=== PATIENT | male | born 1960 | race Caucasian/White ===

== ENCOUNTER → 2017-03-14 | Outpatient (CLI) | payer BC ==
--- NOTE | 2017-03-14 23:18 | MR ---
EXAMINATION TYPE: MR shoulder RT wo con DATE OF EXAM: 03/14/2017 COMPARISON: Outside right shoulder x-ray February 26, 2017. HISTORY: Right shoulder pain per order. Pain for 2 years with difficulty raising overhead per patient . TECHNIQUE: Multiplanar, multisequence imaging of the right shoulder is performed without contrast. FINDINGS: Rotator Cuff: There is full-thickness retracted tear of supraspinatus tendon tract at roughly 2.5 cm from humeral head attachment to level of the acromion seen best on paracoronal image 13. Infraspinatu s tendon is intact. Some increased signal is present without discrete tear. There is some focal teari ng of the superior fibers of the subscapularis tendon present. Rotator cuff muscle bulk is preserved. Acromioclavicular Joint: There is marked joint space loss with capsular hypertrophy and spurring at a cromioclavicular joint. Distal acromion morphology shows mild lateral spurring. Glenohumeral Joint: There is high riding humeral head present. There is large suprapatellar joint eff usion. Labrum: Degenerative tear superior labrum is felt present seen best on paracoronal image 11. Biceps Tendon: The long head of biceps is in normal location within bicipital groove. There is large surrounding fluid with tendon more anteriorly and extra-articular portion. Some intermediate signal a nd thickening is seen in the intra-articular portion best on axial image 13. Bone marrow signal: No focal abnormal marrow signal is appreciated. Other: No additional significant abnormality is appreciated. IMPRESSION: 1. Full-thickness retracted tear of the supraspinatus tendon. Associated high riding humeral head is present. No significant rotator cuff muscular atrophy. 2. Partial tear superior fibers of the subscapularis tendon. 3. Severe tendinosis of the intra-articular portion of long head of biceps tendon. 4. Large glenohumeral joint effusion. 5. Moderate to severe degenerative change acromioclavicular joint.
== END ==
LOC: RADMRIMAIN 19:24
PROVIDERS: ATTEND Orthopaedic Surgery
DX: M75.101 Unspecified rotator cuff tear or rupture of right shoulder, not specified as traumatic (principal); M75.91 Shoulder lesion, unspecified, right shoulder; M25.411 Effusion, right shoulder

== ENCOUNTER 2017-07-18 08:56 | Day surgery (SDC) | payer BC ==
[2017-07-10 23:33] VITALS: BMI 34.2
--- NOTE | 2017-07-17 14:57 | HP ---
HISTORY AND PHYSICAL DATE OF SERVICE: 07/18/2017 Erick Leyva is a 57-year-old patient seen with progressive right shoulder pain. We discussed treatment options. He elected to proceed with arthroscopy. Consent was obtained. PAST MEDICAL HISTORY: Hyperlipidemia, hypertension. PAST SURGICAL HISTORY: Knee arthroscopy. DAILY MEDICATIONS: 1. Simvastatin. 2. Finasteride. ALLERGIES: None reported. SOCIAL HISTORY: Patient denies tobacco use. PHYSICAL EXAMINATION: Right shoulder flexion is 150 degrees, abduction is 130 degrees, external rotation is 50 degrees with pain and weakness. There is tenderness along the anterior lateral acromion and rotator cuff insertion. Impingement positive at 90 degrees. Drop-arm sign is positive. Distal neurovascular exam is intact. Right shoulder radiographs revealed a type 2 anterior acromion and cystic changes of the greater tuberosity. Right shoulder MRI revealed a retracted rotator cuff tendon tear. IMPRESSION: Right shoulder impingement with rotator cuff tear. PLAN: Right shoulder arthroscopy with subacromial decompression, probable arthroscopic rotator cuff repair, possible Keely procedure and debridement. MMODL / IJN: [id number] /
[~2017-07-18 08:56] MED LIST: DEXAMETHASONE SOD PHOSPHATE 10 MG/ML 1 ML VIAL IV ONE; LACTATED RINGERS 1,000 ML IV SCH; LIDOCAINE 1% 20 ML VIAL (10MG/ML) FOR IV START INTRADERMA PRN; MIDAZOLAM 2 MG/2 ML VIAL IV PRN; ONDANSETRON 4 MG/2 ML VIAL IVP ONE; SCOPOLAMINE 1.5MG/72HR PATCH TRANSDERM ONE; ceFAZolin IN SWFI 2 GM/20 ML SYRINGE IVP ONE
[2017-07-18] MEDS ORDERED: MIDAZOLAM 2 MG/2 ML VIAL ONE (09:58)
[2017-07-18] MEDS ORDERED: fentaNYL (PF) 50 MCG/ML 2 ML AMP ONE (09:58)
[2017-07-18] MEDS ORDERED: LIDOCAINE 1% INJ 10MG/ML (20 ML MDV) ONE (09:58)
[2017-07-18] MEDS ORDERED: PROPOFOL 10 MG/ML 20 ML VIAL IV ONE (09:58)
[2017-07-18] MEDS ORDERED: PHENYLEPHRINE-0.9% NACL SYG 1 MG/10 ML SYRINGE ONE (09:58)
[2017-07-18] MEDS ORDERED: SUCCINYLCHOLINE CHLORIDE VIAL 200 MG/10 ML VIAL IV ONE (09:58)
[2017-07-18] MEDS ORDERED: LACTATED RINGERS 1,000 ML IV ONE (12:13)
--- NOTE | 2017-07-18 12:27 | P.OP ---
Date of Procedure: 07/18/17 Preoperative Diagnosis: Right shoulder impingement with rotator cuff tear Postoperative Diagnosis: 1. Right shoulder rotator cuff tear 2. Right shoulder impingement 3. Right shoulder acromioclavicular joint osteoarthritis 4. Right shoulder partial long head biceps tendon tear 5. Right shoulder superficial labral tear 6. 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 Right shoulder arthroscopic rotator cuff repair 2. Right shoulder arthroscopic subacromial decompression 3. Right shoulder arthroscopic Keely procedure 4. Right shoulder arthroscopic biceps tenotomy 5. Right shoulder arthroscopic debridement labral tear 6. Right shoulder arthroscopic chondroplasty glenoid and humeral head Implants: 7-4.5 peek anchors Anesthesia: GETA, regional (Interscalene block) Surgeon: Dawood Knowles Quarrying Specialist #1: Rakesh Hernandez Estimated Blood Loss (ml): 15 Pathology: none sent Condition: stable Disposition: PACU Indications for Procedure: 57-year-old patient seen with progressive right shoulder pain. After treatment options were discussed, he elected to proceed with arthroscopy. Operative Findings: See description of procedure Description of Procedure: Patient underwent a shoulder block by department of anesthesia. The patient was then taken to the operative suite. The patient underwent a general anesthetic by the department of anesthesia. The patient was placed into a lateral position and secured. There was appropriate padding of the bony prominence. Right shoulder was then prepped and draped in normal sterile orthopedic fashion. We placed the extremity in 10 pounds of longitudinal traction. A posterior incision was now made for a posterior working portal site. The trocar and cannula were inserted into the glenohumeral joint. Arthroscopy was initiated. Spinal needle was now inserted anteriorly, to ascertain the anterior working portal site. An incision was now made in that area, a trocar was inserted followed by a probe. There was superficial tearing of the anterior labrum present. Grade 1/2 chondromalacia changes of the glenoid and grade 1 chondromalacia changes of the humeral head with some osteochondral tears. Partial tearing long head biceps tendon. An obvious large rotator cuff tear was visualized from glenohumeral side. I performed an arthroscopic biceps tenotomy. I debrided the superficial labral tears down to stable tissue. I performed a chondroplasty of the humeral head and glenoid fossa. The residual osteochondral surfaces were stable. The residual labrum was stable. Utilizing the posterior working portal site, the trocar and cannula were inserted into the subacromial space. Arthroscopy initiated. I made an incision 2 fingerbreadths lateral to the acromion. I introduced my trocar followed by my ArthroCare ablator. I now began ablating thick subacromial bursal tissue, which exposed the undersurface of the anterior acromion. This was diminished subacromial space. There was a very prominent anterior acromion. A motorized bur was introduced and a subacromial decompression was performed. I also excised some osteophytes off the inferior aspect of the distal clavicle. The AC joint was visualized and noted to be fairly arthritic. Our motorized bur was introduced in the anterior portal site and a Keely procedure was performed without difficulty, decompressing the AC joint nicely. I turned my attention to the rotator cuff. There was a large 3 cm plus tear distal supraspinatus with some retraction. I was able to barely pull it over the footprint. After some releasing was performed to have some more mobilization. I abraded the footprint with a motorized bur. 2 astronomy teacher portal sites are made off the lateral acromion, one anteriorly and one posteriorly. We now introduced 3 medial row anchors with 2 sutures each. All 12 limbs of suture were passed through good bites of rotator cuff tendon. We crisscrossed all her sutures point the tendon over the footprint and then introducing 3 lateral anchors. A compressive tendon along the footprint nicely except for a central area were we had a residual dogear. 3 suture loops were now introduced and an additional anchor was placed centrally to compress that dogear along the footprint very nicely. All residual suture limbs were clipped. We had a good stable repair.. Instruments now removed from the portal sites. All portal sites were approximated with nylon suture. Sterile dressings were applied followed by a shoulder immobilizer. Saad WALKER assisted with the procedure. The patient was awakened, transferred to a bed, and taken to recovery in stable condition.
[2017-07-18 12:33] VITALS: TEMP 97.4
[2017-07-18] MEDS: HYDROmorphone 0.5 MG/0.5 ML SYRINGE IVP PRN ×4 (12:52→13:24)
[2017-07-18 13:52] VITALS: RESP 18
[2017-07-18] MEDS ORDERED: HYDROcodone/APAP 10-325MG 1 EACH TAB PO ONE (14:30)
[2017-07-18 14:33] VITALS: PULSE 89
[2017-07-18 14:59] VITALS: BP 142/80
--- NOTE | 2017-07-19 08:34 | P.ONQ ---
Anesthesiology Proc Note - PNB - Peripheral Nerve Block Performed Right Interscalene Single Time Out Performed: Yes Procedure Start Time: :48 Procedure Stop Time: :54 Indication: Acute Post-Operative Pain, Requested by physician Sedation Type: Sedate with meaningful contact maintained Preparation: Sterile Prep Catheter: None Needle Size: 50mm (2") Needle Gauge: 21 Technique: Ultrasound Injectate: 0.5% Ropivacaine (see comment for volume) (ropi.5% 30cc) Blood Aspirated: No Pain Paresthesia on Injection Noted: No Resistance on Injection: Normal Events: Uneventful and Well Tolerated
== END 2017-07-18 15:29 | disposition home or self-care (01) ==
LOC: OR 08:56
PROVIDERS: ATTEND Orthopaedic Surgery
DX: M75.101 Unspecified rotator cuff tear or rupture of right shoulder, not specified as traumatic (principal); M19.011 Primary osteoarthritis, right shoulder; S46.111A Strain of muscle, fascia and tendon of long head of biceps, right arm, initial encounter; S43.491A Other sprain of right shoulder joint, initial encounter; M25.711 Osteophyte, right shoulder; X58.XXXA Exposure to other specified factors, initial encounter; M94.211 Chondromalacia, right shoulder; E78.5 Hyperlipidemia, unspecified; N40.0 Benign prostatic hyperplasia without lower urinary tract symptoms; I10 Essential (primary) hypertension; Z79.82 Long term (current) use of aspirin; Z79.1 Long term (current) use of non-steroidal anti-inflammatories (NSAID); Z79.891 Long term (current) use of opiate analgesic; Z79.899 Other long term (current) drug therapy
CPT/HCPCS: 64415; 29826; 29827; 29824; C1713; J2250; J0330; J1100; J0690; J2405; J2001; J3010; J2370; J2704; J1170

== ENCOUNTER 2018-01-03 08:18 | Day surgery (SDC) | payer BC ==
[2017-12-31 11:47] VITALS: BMI 34.8
[~2018-01-03 08:18] MED LIST changes: -DEXAMETHASONE SOD PHOSPHATE 10 MG/ML 1 ML VIAL IV ONE; -LIDOCAINE 1% 20 ML VIAL (10MG/ML) FOR IV START INTRADERMA PRN; -MIDAZOLAM 2 MG/2 ML VIAL IV PRN; -ONDANSETRON 4 MG/2 ML VIAL IVP ONE; -SCOPOLAMINE 1.5MG/72HR PATCH TRANSDERM ONE; -ceFAZolin IN SWFI 2 GM/20 ML SYRINGE IVP ONE
[2018-01-03 08:43] VITALS: TEMP 98.6
[2018-01-03] MEDS ORDERED: fentaNYL (PF) 50 MCG/ML 2 ML AMP ONE (08:52)
[2018-01-03] MEDS ORDERED: PROPOFOL 10 MG/ML 20 ML VIAL IV ONE (08:52)
--- NOTE | 2018-01-03 09:03 | P.GSHP ---
History of Present Illness H&P Date: 01/03/18 Chief Complaint: Colon cancer screening Patient here today for colonoscopy. His last colonoscopy was 20 years ago. At that time in his youth he apparently had a colonic perforation that was treated nonoperatively. No bowel complaints presently. Past Medical History Past Medical History: Hyperlipidemia, Hypertension, Osteoarthritis (OA) Additional Past Medical History / Comment(s): migraines, hx palpitations, hiatal hernia, occ blood in stool, hemorrhoid, History of Any Multi-Drug Resistant Organisms: None Reported Past Surgical History: Appendectomy, Hernia Repair, Orthopedic Surgery Additional Past Surgical History / Comment(s): arthroscopy left knee, rt shoulder rotator cuff, Past Anesthesia/Blood Transfusion Reactions: Motion Sickness Additional Past Anesthesia/Blood Transfusion Reaction / Comment(s): motion sickness when younger Smoking Status: Never smoker - Past Family History Father Family Medical History: Cancer Medications and Allergies Home Medications Medication Instructions Recorded Confirmed Type Aspirin 81 mg PO DAILY 07/10/17 01/03/18 History Diclofenac Potassium [Cataflam] 50 mg PO TID 07/10/17 01/03/18 History Finasteride [Proscar] 5 mg PO HS 07/10/17 01/03/18 History HYDROcodone/APAP 7.5-325MG [[place] 1 tab PO BID PRN 07/10/17 01/03/18 History 7.5-325] Metoprolol Succinate (ER) [Toprol 50 mg PO HS 07/10/17 01/03/18 History Xl] Simvastatin [Zocor] 40 mg PO HS 07/10/17 01/03/18 History SUMAtriptan SUCCINATE [Imitrex] 100 mg PO BID PRN 12/31/17 01/03/18 History Allergies Allergy/AdvReac Type Severity Reaction Status Date / Time No Known Allergies Allergy Verified 01/03/18 08:34 Surgical - Exam Vital Signs Temp Pulse Resp BP Pulse Ox 98.6 F 88 16 148/93 94 L 01/03/18 08:41 01/03/18 08:41 01/03/18 08:41 01/03/18 08:41 01/03/18 08:41 Physical exam: General: Well-developed, well-nourished HEENT: Normocephalic, sclerae nonicteric Abdomen: Nontender, nondistended Extremities: No edema Neuro: Alert and oriented Assessment and Plan (1) Colon cancer screening Narrative/Plan: Will proceed with colonoscopy at this time. Current Visit: Yes Status: Acute Code(s): Z12.11 - ENCOUNTER FOR SCREENING FOR MALIGNANT NEOPLASM OF COLON SNOMED Code(s): 322905676
--- NOTE | 2018-01-03 09:17 | P.PCN ---
Date of Procedure: 01/03/18 Procedure(s) Performed: PREOPERATIVE DIAGNOSIS: Colon cancer screening POSTOPERATIVE DIAGNOSIS: Diverticulosis PROCEDURE: Colonoscopy ANESTHESIA: MAC SURGEON: Jhonny Irene M.D. SPECIMENS: None ENDOSCOPIC PROCEDURE: The patient was placed on the endoscopy table in the left decubitus position. The Olympus colonoscope was inserted into the anus and passed under direct visualization to the base of the cecum. The appendiceal orifice was visualized. From that point the scope was slowly withdrawn inspecting all surfaces carefully. There were no neoplastic inflammatory or polypoid lesions throughout the cecum, ascending, transverse, descending, sigmoid and rectum. There was moderate diverticulosis noted throughout the sigmoid colon. Digital rectal examination was normal. The patient was taken to the recovery room in stable condition per anesthesia guidelines. RECOMMENDATIONS: Increase fiber. Follow-up colonoscopy 10 years.
[2018-01-03 09:39] VITALS: BP 135/84; PULSE 67; RESP 18
== END 2018-01-03 09:44 | disposition home or self-care (01) ==
LOC: ORWHC2ENDO 08:18
PROVIDERS: ATTEND Surgery
DX: Z12.11 Encounter for screening for malignant neoplasm of colon (principal); K57.30 Diverticulosis of large intestine without perforation or abscess without bleeding; K64.9 Unspecified hemorrhoids; E78.5 Hyperlipidemia, unspecified; I10 Essential (primary) hypertension; M19.90 Unspecified osteoarthritis, unspecified site; F41.9 Anxiety disorder, unspecified; G43.909 Migraine, unspecified, not intractable, without status migrainosus; Z79.82 Long term (current) use of aspirin; Z79.1 Long term (current) use of non-steroidal anti-inflammatories (NSAID); Z79.899 Other long term (current) drug therapy; Z87.19 Personal history of other diseases of the digestive system; Z80.9 Family history of malignant neoplasm, unspecified
CPT/HCPCS: J3010; J2704; G0121; 45378

== ENCOUNTER → 2018-04-17 | Outpatient (CLI) | payer BC ==
--- NOTE | 2018-04-17 23:10 | MR ---
EXAMINATION TYPE: MR shoulder LT wo con DATE OF EXAM: 04/17/2018 COMPARISON: Outside left shoulder x-ray March 25, 2018. HISTORY: Pain in left shoulder per order. Rotator cuff pain with difficulty raising overhead for 2 mo nths per patient. TECHNIQUE: Multiplanar, multisequence imaging of the left shoulder is performed without contrast. FINDINGS: Rotator Cuff: There appears to be complete retracted tear of the supraspinatus tendon retracted to th e lateral margin of the acromion paracoronal image 11. Infraspinatus tendon is intact. Subscapularis tendon is intact. Rotator cuff muscle bulk is preserved. Acromioclavicular Joint: There is moderate to advanced joint space loss and spurring with capsular hy pertrophy. Glenohumeral Joint: There is moderate size glenohumeral joint effusion. There is moderate joint space loss with mild spurring. Labrum: Degenerative increased signal superior labrum is felt present paracoronal image 12. Biceps Tendon: The long head of biceps is heart shifted location as axis intra-articular groove axial image 13. Some increased signal intracapsular horizontal portion is present towards labral anchor. S urrounding fluid signal within the tendon sheath is present. Bone marrow signal: Subchondral cystic change superolateral humeral head is present. Other: No additional significant abnormality is appreciated. IMPRESSION: 1. Full-thickness retracted tear of supraspinatus tendon. 2. Moderate to advanced before meals and glenohumeral joint arthropathy. 3. Tendinosis/partial tear of the intra-articular portion biceps tendon with parching and tenosynovit is noted.
== END | disposition home or self-care (01) ==
LOC: RADMRIMAIN 16:56
PROVIDERS: ATTEND Orthopaedic Surgery
DX: M75.122 Complete rotator cuff tear or rupture of left shoulder, not specified as traumatic (principal); M12.9 Arthropathy, unspecified; M65.812 Other synovitis and tenosynovitis, left shoulder

== ENCOUNTER → 2018-07-10 | Outpatient (CLI) | payer BC | LOC: LABPAT 13:36 | PROVIDERS: ATTEND Orthopaedic Surgery | DX: Z01.812 Encounter for preprocedural laboratory examination (principal) | CPT/HCPCS: 87070 ==

== ENCOUNTER 2018-07-21 10:42 | Day surgery (SDC) | payer BC ==
--- NOTE | 2018-07-20 15:13 | HP ---
HISTORY AND PHYSICAL HISTORY: Kelvin Leyva is a 58-year-old patient seen with symptomatic left knee osteoarthritis. Treatment options were discussed with him. He elected to proceed with left total knee arthroplasty. Consent regarding procedure was obtained. Medical clearance was provided by Dr. Moreau. PAST MEDICAL HISTORY: Hypertension, hyperlipidemia. PAST SURGICAL HISTORY: Left knee arthroscopy, right shoulder arthroscopy, appendectomy. MEDICATIONS: Simvastatin, sumatriptan, diclofenac. ALLERGIES: None. SOCIAL HISTORY: Patient denies tobacco use. PHYSICAL EXAMINATION: Evaluation of the left knee, range of motion is -2 to 125 degrees. Tenderness along the medial joint line. Crepitus medial patellofemoral compartments with range of motion. Pain with patellofemoral compression. Ligaments stable. Hip rotation without pain. Distal neurovascular exam is intact. RADIOGRAPHS: Revealed severe medial moderate patellofemoral compartment osteoarthritis. IMPRESSION: 1. Left knee osteoarthritis. 2. Hypertension. 3. Hyperlipidemia. PLAN: Left total knee arthroplasty. MMODL / IJN: [id number] /
[2018-07-21] MEDS: LIDOCAINE 1% 20 ML VIAL (10MG/ML) FOR IV START INTRADERMA PRN ×2 (10:20→11:20)
[2018-07-21] MEDS: ONDANSETRON 4 MG/2 ML VIAL IVP ONE ×2 (10:20→11:20)
[2018-07-21] MEDS: DEXAMETHASONE SOD PHOSPHATE 10 MG/ML 1 ML VIAL IV ONE ×2 (10:20→11:20)
[~2018-07-21 10:42] MED LIST changes: +ACETAMINOPHEN TAB 500 MG TAB PO ONE; +MELOXICAM 7.5 MG TAB PO ONE; +MIDAZOLAM 2 MG/2 ML VIAL IVP ONE; +SCOPOLAMINE 1.5MG/72HR PATCH TRANSDERM ONE; +TRANEXAMIC ACID 1,000 MG in SODIUM CHLORIDE 0.9% 50 ML IVPB ONE; +fentaNYL (PF) 50 MCG/ML 2 ML AMP IVP ONE
[2018-07-21] MEDS ORDERED: ROPIVACAINE 246.25 MG, EPINEPHrine 0.5 MG, KETOROLAC 30 MG, cloNIDine HCL/PF 80 MCG, WA... MISCELLANE ONE ×5 (11:24)
[2018-07-21] MEDS ORDERED: MIDAZOLAM 2 MG/2 ML VIAL IVP ONE (11:25)
[2018-07-21] MEDS ORDERED: fentaNYL (PF) 50 MCG/ML 2 ML AMP IVP ONE (11:25)
[2018-07-21] MEDS ORDERED: ePHEDrine SULFATE/0.9% NACL/PF 50 MG/5 ML SYRINGE IV ONE (11:53)
[2018-07-21] MEDS ORDERED: fentaNYL (PF) 50 MCG/ML 2 ML AMP ONE (11:53)
[2018-07-21] MEDS ORDERED: TRANEXAMIC ACID 1,000 MG/10 ML VIAL ONE (11:53)
[2018-07-21] MEDS ORDERED: SODIUM CHLORIDE 0.9% 100 ML BAG ONE (11:53)
[2018-07-21] MEDS ORDERED: MIDAZOLAM 2 MG/2 ML VIAL ONE (11:53)
[2018-07-21] MEDS ORDERED: PROPOFOL 10 MG/ML 20 ML VIAL IV ONE (11:53)
[2018-07-21] MEDS ORDERED: ROPIVACAINE 1,100 MG, SODIUM CHLORIDE 0.9% 500 ML 330 ML MISCELLANE PRN ×2 (11:54)
--- NOTE | 2018-07-21 11:56 | P.ONQ ---
Anesthesiology Proc Note - PNB - Peripheral Nerve Block Performed Left Adductor Canal Infusion Time Out Performed: Yes Procedure Start Time: 10:25 Indication: Acute Post-Operative Pain Specifically requested for management of pain by DrNick: Dawood Knowles Sedation Type: Sedate with meaningful contact maintained Preparation: Sterile Prep Position: Supine Catheter Depth at Skin (cm): 7 Catheter: Indwelling Needle Types: Other (see comment) (Pajunk) Needle Size: 100mm (4") Needle Gauge: 18 Technique: Ultrasound Injectate: 0.5% Ropivacaine (see comment for volume) (20cc) Blood Aspirated: No Pain Paresthesia on Injection Noted: No Resistance on Injection: Normal Events: Uneventful and Well Tolerated
[2018-07-21] MEDS ORDERED: LACTATED RINGERS 1,000 ML IV ONE ×3 (12:26→14:50)
[2018-07-21] MEDS ORDERED: ceFAZolin 3,000 MG in SODIUM CHLORIDE 0.9% IRRIGATIO 3,000 ML IRRIGATION ONE (12:37)
[2018-07-21] MEDS ORDERED: HYDROmorphone 1 MG/ML 1 ML SYRINGE IVP PRN (14:00)
[2018-07-21] MEDS ORDERED: hydrOXYzine PAMOATE 25 MG CAP PO PRN (14:00)
[2018-07-21] MEDS ORDERED: ONDANSETRON 4 MG/2 ML VIAL IVP PRN (14:00)
[2018-07-21] MEDS ORDERED: HYDROmorphone 0.5 MG/0.5 ML SYRINGE IVP PRN ×2 (14:00)
[2018-07-21] MEDS ORDERED: NALOXONE 0.4 MG/ML 1 ML VIAL IV PRN (14:00)
[2018-07-21] MEDS ORDERED: HYDROcodone/APAP 5-325MG 1 EACH TAB PO PRN (14:00)
--- NOTE | 2018-07-21 14:00 | P.OP ---
Date of Procedure: 07/21/18 Preoperative Diagnosis: Left knee osteoarthritis Postoperative Diagnosis: Left knee osteoarthritis Procedure(s) Performed: Left total knee arthroplasty Implants: 1. Depuy attune size 7 cruciate-retaining cemented femur 2. Depuy attune size 7 fixed bearing cemented tibial baseplate 3. Depuy attune size 7 fixed bearing cruciate retaining 10 mm polyethylene tibial insert 4. Depuy attune 41 mm all polyethylene cemented patella Anesthesia: regional, local, spinal Surgeon: Dawood Knowles Bakery Products Checker #1: Rakesh Hernandez Estimated Blood Loss (ml): 50 Pathology: other (Bone) Condition: stable Disposition: PACU Indications for Procedure: 58-year-old patient seen with progressive left knee pain. After having treatment options discussed, he elected to proceed with total knee arthroplasty. Operative Findings: See description of procedure Description of Procedure: Patient was taken to the operative suite after having an adductor canal catheter placed by the department of anesthesia. Patient underwent a spinal anesthetic by the department of anesthesia. Patient was given preoperative IV antibiotics and TXA. The patient had a history of benign prosthetic hypertrophy and requested a [place] catheter insertion as he has a difficult time urinating after procedures. Urinary catheter was now placed under sterile technique. A well-padded tourniquet was placed about the left lower extremity. The lower extremity was then prepped and draped in the normal sterile orthopedic fashion. The extremity was elevated, a tourniquet was insufflated to 300. A standard anterior incision was made sharply through skin. Dissection was taken down through the subcutaneous soft tissues down to the extensor mechanism. A medial arthrotomy was performed, patella was everted and knee was flexed. There was advanced osteoarthritis noted. I introduced my distal intramedullary femoral drill. I then introduced the distal femoral cutting jig. Saad WALKER secured the cutting jig with 2 pins. I held retractors in position while Saad WALKER performed the distal femoral resection through the guide area we now removed her distal femoral cutting guide. We now placed our 4-in-1 femoral cutting block and positioned and it was secured with 2 pins by Saad WALKER while I held the block in position. The distal femoral finishing was now completed. A proximal tibial cutting guide was positioned. I held the guide in the appropriate position with both hands well Saad WALKER inserted stabilizing pins into the guide. Proximal tibial cut was made. We now placed a trial femoral component into position, along with an appropriate size tibial tray and insert. We now took the knee through range of motion and had full extension good flexion and good overall soft tissue balance noted. The patella was everted and stabilized with 2 towel clips held by Saad WALKER while I performed a flush with patellar quad tendon utilizing a fresh sawblade. We templated the patella, appropriate drill holes were made. An appropriate trial patella was positioned, knee was taken through full range of motion with the patella tracking very nicely. The trial patella was removed. Drill holes were made through the femoral component. All trial components were removed after marking off the appropriate rotation of the tibia. Retractors were now positioned along the proximal tibia. An appropriate keel punch was made with the appropriate size tibial guide by myself on Saad WALKER assisted by holding retractors. At this point appropriate size implants were chosen and opened. The joint was irrigated copiously with pulse lavage mechanical irrigation. The posterior capsule was infiltrated with local analgesic. The wound was irrigated with pulse lavage mechanical irrigation. We mixed antibiotic methylmethacrylate. We placed the knee into flexion. We placed multiple retractors assisted by Saad WALKER to expose the proximal tibia. Once the methyl methacrylate was ready, the tibial component was cemented into place removing any excess methylmethacrylate form by both myself and Saad WALKER. The femoral component was cemented into place removing the removing any excess methylmethacrylate performed by both myself and Saad WALKER. We then inserted the appropriate size polyethylene tibial insert. We made sure that it was locked into position. We took the knee into full extension, and then back in a flexion making sure we had removed any excess methylmethacrylate. The patellar component was then cemented down and secured with clamp. Excess methylmethacrylate removed. We kept the knee in full extension, patellar clamp in position until methylmethacrylate had hardened. Once it had hardened the patellar clamp was removed. The knee was taken through full range of motion. The patella tracked nicely. There was good soft tissue balancing. The tourniquet was now released. Additional hemostasis was achieved via electrocautery. A second gram of TXA was given. The wound again was irrigated with pulse lavage mechanical irrigation. The superficial soft tissues were infiltrated local analgesic. The extensor mechanism was repaired with Vicryl. We checked the repair with range of motion and it was stable. The subcutaneous soft tissues were repaired with Vicryl in layers. The skin was approximated with pernio/Dermabond. Sterile dressings were applied followed by loose web roll and Garett bandage. The patient was transferred to a bed, and taken to recovery in stable and satisfactory condition. Saad WALKER assisted with this complex procedure.
--- NOTE | 2018-07-21 14:37 | XR ---
EXAMINATION TYPE: XR knee limited LT DATE OF EXAM: 07/21/2018 CLINICAL HISTORY: Right knee pain and arthritis status post total knee replacement. TECHNIQUE: Portable AP and crosstable lateral views of the left knee are obtained immediately postop eratively. COMPARISON: None FINDINGS: Metallic hardware from total left knee arthroplasty is seen and appears satisfactory in al ignment and position. There is evidence of recent surgery with diffuse subcutaneous gas and soft tis alfredo swelling noted. IMPRESSION: METALLIC HARDWARE FROM TOTAL LEFT KNEE ARTHROPLASTY IS SATISFACTORY IN ALIGNMENT.
[2018-07-21] MEDS: HYDROmorphone 0.5 MG/0.5 ML SYRINGE IVP PRN ×2 (14:40→14:48)
[2018-07-21] MEDS ORDERED: BUTALB/APAP/CAFF 50-325-40MG TAB PO PRN (15:31)
[2018-07-21] MEDS ORDERED: SUMAtriptan SUCCINATE 50 MG TAB PO PRN (15:31)
[2018-07-21] MEDS ORDERED: METHOCARBAMOL 500 MG TAB PO PRN (15:33)
[2018-07-21 15:40] VITALS: BMI 35.3
[2018-07-21] MEDS: LACTATED RINGERS 1,000 ML IV SCH (16:22)
[2018-07-21] MEDS: traMADol 50 MG TAB PO SCH ×2 (16:53→21:30)
[2018-07-21] MEDS ORDERED: METOPROLOL SUCCINATE (ER) 100 MG TAB.ER.24H PO SCH (21:00)
[2018-07-21] MEDS ORDERED: SENNOSIDES-DOCUSATE SODIUM 1 EACH TAB PO SCH (21:00)
[2018-07-21] MEDS ORDERED: ATORVASTATIN 20 MG TAB PO SCH (21:00)
[2018-07-21] MEDS ORDERED: FINASTERIDE 5 MG TAB PO SCH (21:00)
[2018-07-21] MEDS: ceFAZolin IN SWFI 2 GM/20 ML SYRINGE IVP SCH (21:31)
[2018-07-21] MEDS: HYDROcodone/APAP 7.5-325MG 1 EACH TAB PO PRN (23:03)
[2018-07-22] MEDS: LACTATED RINGERS 1,000 ML IV SCH ×2 (00:34→10:35)
[2018-07-22] MEDS: ceFAZolin IN SWFI 2 GM/20 ML SYRINGE IVP SCH (04:30)
[2018-07-22] MEDS ORDERED: ENOXAPARIN 30 MG/0.3 ML SYRINGE SQ SCH (06:00)
[2018-07-22] MEDS: HYDROcodone/APAP 7.5-325MG 1 EACH TAB PO PRN ×2 (06:20→12:55)
[2018-07-22 07:27] LABS: Basophils % (A) 0 %; Eosinophils % (A) 0 %; HCT 31.6 % (39.0-53.0); HGB 10.2 gm/dL (13.0-17.5); Lymphocytes # (A) 1.1 k/uL (1.0-4.8); Lymphocytes % (A) 10 %; MCH 27.4 pg (25.0-35.0); MCHC 32.4 g/dL (31.0-37.0); MCV 84.5 fL (80.0-100.0); Monocytes % (A) 8 %; Neutrophils # (A) 9.3 k/uL (1.3-7.7); Neutrophils % (A) 80 %; Platelet Count 206 k/uL (150-450); RBC 3.74 m/uL (4.30-5.90); RDW 14.6 % (11.5-15.5); WBC 11.7 k/uL (3.8-10.6)
[2018-07-22 07:45] LABS: ALT 19 U/L (21-72); AST 15 U/L (17-59); Albumin 3.2 g/dL (3.5-5.0); Alkaline Phosphatase 51 U/L (38-126); Anion Gap 6 mmol/L; Blood Urea Nitrogen 22 mg/dL (9-20); Calcium 8.9 mg/dL (8.4-10.2); Carbon Dioxide 27 mmol/L (22-30); Chloride 107 mmol/L (98-107); Glucose 106 mg/dL (74-99); Potassium 4.4 mmol/L (3.5-5.1); Sodium 140 mmol/L (137-145); Total Bilirubin 0.4 mg/dL (0.2-1.3); Total Protein 5.7 g/dL (6.3-8.2)
[2018-07-22 08:36] VITALS: BP 130/78; PULSE 73; RESP 14; TEMP 98.5
[2018-07-22] MEDS: traMADol 50 MG TAB PO SCH (08:38)
[2018-07-22] MEDS ORDERED: MELOXICAM 7.5 MG TAB PO SCH (09:00)
--- NOTE | 2018-07-22 11:16 | P.CONS ---
History of Present Illness - Reason for Consult Consult date: 07/22/18 Medical management Requesting physician: Dawood Knowles - Chief Complaint Osteoarthritis of the left knee - History of Present Illness This is a 58-year-old male patient who presented to the hospital for an elective left knee arthroplasty with Dr. Knowles on 07/21/2018. 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 Patient underwent total left knee arthroplasty with an EBL of 50 MLS. At this time patient is resting in bed. Patient reports that he has been up walking. Patient denies any chest pain or shortness of breath. Patient denies nausea vomiting or diarrhea. Patient denies any urinary burning or frequency. Patient denies any upper respiratory symptoms at this time Review of Systems Please refer to HPI otherwise unremarkable Past Medical History Past Medical History: Hearing Disorder / Deafness, Hyperlipidemia, Hypertension , Osteoarthritis (OA) Additional Past Medical History / Comment(s): Migraines. HX BRIEF ARRYTHMIA YEARS AGO. TINNITUS. 2 TORN ROTATOR CUFFS. HEMORRHOIDS. PRESCRIBED 2ND HTN RX 06/25/18, BUT PATIENT DECIDED NOT TO START YET. History of Any Multi-Drug Resistant Organisms: None Reported Past Surgical History: Appendectomy, Hernia Repair, Orthopedic Surgery Additional Past Surgical History / Comment(s): Arthroscopy knee. RT TORN ROTATOR CUFF REPAIR. Past Anesthesia/Blood Transfusion Reactions: No Reported Reaction, Family History of Problems w/ Anesthesia Additional Past Anesthesia/Blood Transfusion Reaction / Comm: MOTHER HAS PONV. Motion sickness when younger Past Psychological History: Anxiety Smoking Status: Never smoker Past Alcohol Use History: None Reported Past Drug Use History: None Reported - Past Family History Father Family Medical History: Cancer Medications and Allergies Home Medications Medication Instructions Recorded Confirmed Type Aspirin 81 mg PO DAILY 07/10/17 07/15/18 History Diclofenac Potassium [Cataflam] 50 mg PO BID 07/10/17 07/15/18 History Finasteride [Proscar] 5 mg PO HS 07/10/17 07/15/18 History HYDROcodone/APAP 7.5-325MG [[place] 1 tab PO BID PRN 07/10/17 07/15/18 History 7.5-325] Metoprolol Succinate (ER) [Toprol 100 mg PO HS 07/10/17 07/15/18 History Xl] Simvastatin [Zocor] 40 mg PO HS 07/10/17 07/15/18 History SUMAtriptan SUCCINATE [Imitrex] 100 mg PO BID PRN 12/31/17 07/15/18 History Butalb/Acetaminophen/Caffeine 1 - 2 cap PO Q6HR PRN 07/15/18 07/21/18 History [Fioricet 50-300-40 mg Capsule] Methocarbamol [Robaxin] 500 mg PO Q8H PRN 07/15/18 07/21/18 History Allergies Allergy/AdvReac Type Severity Reaction Status Date / Time No Known Allergies Allergy Verified 07/15/18 12:18 Physical Exam Vitals: Vital Signs Temp Pulse Pulse Resp BP Pulse Ox 07/22/18 07:00 98.5 F 73 14 130/78 98 07/22/18 01:00 97.2 F L 94 16 114/73 95 07/21/18 20:25 97.1 F L 108 H 16 140/94 93 L 07/21/18 17:20 76 153/94 07/21/18 17:05 80 151/99 07/21/18 16:50 77 153/88 07/21/18 16:35 87 16 155/97 97 07/21/18 16:20 70 160/98 92 L 07/21/18 16:05 69 153/96 100 07/21/18 16:00 17 07/21/18 15:48 83 160/97 89 L 07/21/18 15:35 97.9 F 72 17 154/89 97 07/21/18 15:10 65 16 129/67 96 07/21/18 14:57 67 16 130/74 97 07/21/18 14:42 68 16 132/61 96 07/21/18 14:27 66 16 136/82 97 07/21/18 14:12 98 F 62 18 134/74 97 07/21/18 11:48 65 18 133/84 99 Intake and Output 07/21/18 07/22/18 07/22/18 22:59 06:59 14:59 Intake Total 290 1300 296 Output Total 70 875 Balance 220 425 296 Intake: IV 50 Intake, IV Titration 1000 Amount Lactated Ringers 1,000 ml 1000 @ 100 mls/hr IV .Q10H [facility] Rx#:[id number] Oral 240 300 296 Output: Urine 70 875 Uretheral ([place]) 875 Other: Voiding Method Indwelling Catheter Indwelling Catheter Head normocephalic Neck supple Lungs clear to auscultation bilaterally no wheezing or crackles Heart regular rate and rhythm S1-S2, no rub or gallop Abdomen is soft nontender nondistended positive bowel sounds no hepatosplenomegaly Extremities no edema. Left knee dressing is clean dry and intact Neuro alert and orientated to 3 Results CBC & Chem 7: 07/22/18 06:39 07/22/18 06:39 Labs: Abnormal Lab Results - Last 24 Hours (Table) 07/22/18 07/22/18 Range/Units 06:39 06:39 WBC 11.7 H (3.8-10.6) k/uL RBC 3.74 L (4.30-5.90) m/uL Hgb 10.2 L (13.0-17.5) gm/dL Hct 31.6 L (39.0-53.0) % Neutrophils # 9.3 H (1.3-7.7) k/uL BUN 22 H (9-20) mg/dL Glucose 106 H (74-99) mg/dL AST 15 L (17-59) U/L ALT 19 L (21-72) U/L Total Protein 5.7 L (6.3-8.2) g/dL Albumin 3.2 L (3.5-5.0) g/dL Assessment and Plan Assessment: 1. Status post total left knee arthroplasty. Patient is currently postop day 1. Patient maintained on Lovenox for DVT prophylaxis and pain meds per or so surgery. 2. Hyperlipidemia. Patient maintained on Lipitor 3. History of migraines 4. History of essential hypertension. Home meds resumed 5. Leukocytosis. WBC 11.7. Patient denies any signs of acute infection. Will order UA 6. Anemia. Hemoglobin 10.2. Iron studies have been ordered. Will start patient on ferrous sulfate Thank you for this consultation we'll continue to follow patient closely throughout stay Patient planning to be DC'd home Time with Patient: Greater than 30 (Greater than 60% of the total time spent in counseling and coordination of care. I performed an examination of the patient and discussed their management with the Nurse Practitioner. I have reviewed the Nurse Practitioner's notes and agree with the documented findings and plan of care)
--- NOTE | 2018-07-22 11:56 | P.PN ---
Progress Note - Text Anesthesia POD 1. Patient is status post left TKR under spinal anesthesia with a left adductor canal catheter placed for postoperative pain relief. With ropivacaine 0.2% running at 8 cc's per hour, the patient's VAS is (2, 4). Catheter site is clean dry and intact.
[2018-07-22] MEDS ORDERED: MULTIVITAMINS, THERA 1 EACH TAB PO SCH (12:00)
--- NOTE | 2018-07-22 12:33 | P.PN ---
Subjective Progress Note Date: 07/22/18 Principal diagnosis: Status post left total knee arthroplasty Patient is evaluated today at bedside, he is resting comfortably. Patient has done well with physical therapy. Denies any chest pain or shortness of breath. Objective - Vital Signs Vital signs: Vital Signs Temp 98.5 F 07/22/18 07:00 Pulse 73 07/22/18 07:00 Resp 14 07/22/18 07:00 BP 130/78 07/22/18 07:00 Pulse Ox 98 07/22/18 07:00 Intake & Output 07/21/18 07/22/18 07/22/18 18:59 06:59 18:59 Intake Total 2101 1540 296 Output Total 280 875 Balance 1821 665 296 Weight 115 kg Intake: IV 2101 Intake, IV Titration 1000 Amount Lactated Ringers 1,000 ml 1000 @ 100 mls/hr IV .Q10H [facility] Rx#:[id number] Oral 540 296 Output: Urine 230 875 Uretheral ([place]) 875 Estimated Blood Loss 50 Other: Voiding Method Indwelling Catheter Indwelling Catheter Indwelling Catheter - Exam Left lower extremity: Incision is clean, dry, and intact. The exofin fusion tape is in good condition. There is minimal soft tissue swelling and ecchymosis surrounding the medial and lateral aspects of the incision. Calf is soft, no tenderness with palpation. Plantar flexion, dorsiflexion, EHL, FHL are intact. Sensory exam to light touch throughout the extremity is intact, dorsal pedis pulses 2+. - Labs CBC & Chem 7: 07/22/18 06:39 07/22/18 06:39 Labs: Abnormal Lab Results - Last 24 Hours (Table) 07/22/18 07/22/18 Range/Units 06:39 06:39 WBC 11.7 H (3.8-10.6) k/uL RBC 3.74 L (4.30-5.90) m/uL Hgb 10.2 L (13.0-17.5) gm/dL Hct 31.6 L (39.0-53.0) % Neutrophils # 9.3 H (1.3-7.7) k/uL BUN 22 H (9-20) mg/dL Glucose 106 H (74-99) mg/dL AST 15 L (17-59) U/L ALT 19 L (21-72) U/L Total Protein 5.7 L (6.3-8.2) g/dL Albumin 3.2 L (3.5-5.0) g/dL Assessment and Plan Plan: Assessment: Postoperative day #1 status post left total knee arthroplasty Plan: Pain control, we'll discharge home on oral medication GI and DVT prophylaxis, 81 mg aspirin twice a day Wound care instructions discussed Home physical therapy and nursing after discharge Medical recommendations Discharge planning: Patient will be discharged home today Time with Patient: Less than 30
--- NOTE | 2018-07-22 12:44 | P.DS ---
Providers Date of admission: 07/21/2018 Expected date of discharge: 07/22/18 Attending physician: Dawood Knowles Consults: 07/21/18 14:00 Consult Physician Routine Consulting Provider: Nico Gudino Consult Reason/Comments: Medical management Do you want consulting provider notified?: Yes Primary care physician: Pravin Moreau MD Hospital Course: Date of admission: 07/21/2018 Date of discharge: 07/22/2018 Admission diagnosis: Status post left total knee arthroplasty Discharge diagnosis: Same Attending physician: Dr. Knowles Surgical procedures: Left total knee arthroplasty Brief history: Patient is a 58-year-old male with a history of progressive primary left knee osteoarthritis. At this point patient has failed conservative treatment measures and has opted to proceed with a elective left total knee arthroplasty. Hospital course: Details of patient's surgery can be found in operative report. Patient tolerated the procedure well and was subsequently transported to orthopedic floor. Patient's orthopeidc and medical care was provided daily. Patient had daily laboratory tests performed for evaluation of overall blood counts. Patient had daily physical therapy to include strengthening range of motion as well as education with walker ambulation. Patient had daily CPM usage as part of their physical therapy program. Patient was treated with Lovenox for their postoperative DVT prophylaxis during their inpatient stay. Patient was noted to have a relatively uneventful postoperative course. Patient reported satisfactory pain control with oral pain medications by postoperative day 0. Patient showed satisfactory progress with physical therapy. Patient moved steadily through the program and had no difficulty meeting the goals by postoperative day 1. Given patient's otherwise satisfactory course and having met physical therapy goals, plan is to discharge patient home on postoperative day 1. Discharge condition/disposition: Patient will be discharged home in stable condition. Discharge medications: Instructions are given on resumption of patient's normal daily medications per primary care recommendation, in addition patient will be prescribed Babb 7.5 mg/325 mg, Colace milligrams, aspirin 81 mg. Discharge instructions: 1. Wound care and infection precautions, keep incision dry and covered while showering, no lotions, creams, moisturizers. No soaking, tubs, pools, hottubs. Do not scrub over the incision. 2. Weight-bear as tolerated with walker / cane until follow-up. 3. Ice and elevate when necessary. Do not exceed 20 minutes per hour with ice pack. 4. Utilize compression sleeve until seen at first follow up appointment. 5. Visiting nursing care. 6. Home physical therapy including home CPM]. 7. Pain meds and anticoagulants per prescription. 8. Pain medication has potential to cause constipation. Increase oral fluid and fiber intake. Contact primary care provider if you have not had a bowel movement within 48 hours after discharge 9. No anti-inflammatory medication until discussed at first post operative visit, this including Motrin, Aleve, Mobic, Diclofenac. 10. Follow up in office at 2 weeks postop with Saad Hernandez PA-C 11. Follow up with your primary care doctor 7-10 days after discharge. 12. Contact [facility] with any questions, . Procedures: Left total knee arthroplasty Patient Condition at Discharge: Good Plan - Discharge Summary Discharge Rx Participant: Yes New Discharge Prescriptions: New Aspirin [Adult Low Dose Aspirin EC] 81 mg PO BID #60 tablet. Docusate [Colace] 100 mg PO DAILY #30 capsule HYDROcodone/APAP 7.5-325MG [[place] 7.5] 1 - 2 each PO Q6HR PRN #56 tab PRN Reason: Pain No Action Metoprolol Succinate (ER) [Toprol Xl] 100 mg PO HS Finasteride [Proscar] 5 mg PO HS Diclofenac Potassium [Cataflam] 50 mg PO BID Simvastatin [Zocor] 40 mg PO HS SUMAtriptan SUCCINATE [Imitrex] 100 mg PO BID PRN PRN Reason: migraines Methocarbamol [Robaxin] 500 mg PO Q8H PRN PRN Reason: Pain Butalb/Acetaminophen/Caffeine [Fioricet 50-300-40 mg Capsule] 1 - 2 cap PO Q6HR PRN PRN Reason: Migraine Headache Discharge Medication List Diclofenac Potassium [Cataflam] 50 mg PO BID 07/10/17 [History] Finasteride [Proscar] 5 mg PO HS 07/10/17 [History] Metoprolol Succinate (ER) [Toprol Xl] 100 mg PO HS 07/10/17 [History] Simvastatin [Zocor] 40 mg PO HS 07/10/17 [History] SUMAtriptan SUCCINATE [Imitrex] 100 mg PO BID PRN 12/31/17 [History] Butalb/Acetaminophen/Caffeine [Fioricet 50-300-40 mg Capsule] 1 - 2 cap PO Q6HR PRN 07/15/18 [History] Methocarbamol [Robaxin] 500 mg PO Q8H PRN 07/15/18 [History] Aspirin [Adult Low Dose Aspirin EC] 81 mg PO BID #60 tablet. 07/22/18 [Rx] Docusate [Colace] 100 mg PO DAILY #30 capsule 07/22/18 [Rx] HYDROcodone/APAP 7.5-325MG [[place] 7.5] 1 - 2 each PO Q6HR PRN #56 tab 07/22/18 [ Rx] Follow up Appointment(s)/Referral(s): [facility], [NON-STAFF] - Rakesh Hernandez PAC [PHYSICIAN UTILIZATION REVIEW NURSE] - 2 Weeks Activity/Diet/Wound Care/Special Instructions: Orthopedic Discharge Instructions: 1. Wound care and infection precautions, keep incision dry and covered while showering, no lotions, creams, moisturizers. No soaking, pools, hot tubs. Do not scrub over incision. 2. Weight-bear as tolerated with walker / cane until follow-up. 3. Ice and elevate when necessary. Do not exceed 20 minutes per hour with ice pack. 4. Utilize compression sleeve until seen at first follow up appointment. 5. Pain meds and anticoagulants per prescription. 6. Pain medication has potential to cause constipation. Increase oral fluid and fiber intake. Contact primary care provider if you have not had a bowel movement within 48 hours after discharge. 7. No anti-inflammatory medication until discussed at first post operative visit, this including Motrin, Aleve, Mobic, Diclofenac. 8. Follow up in office at 2 weeks postop with Saad Hernandez PA-C 9. Follow up with your primary care doctor 7-10 days after discharge. 10. Contact [facility] with any questions, . Discharge Disposition: HOME WITH HOME HEALTH SERVICES
[2018-07-22 14:57] LABS: Appearance,Urine Turbid (Clear); Bilirubin,Urine Negative (Negative); Blood,Urine Moderate (Negative); Color,Urine Yellow; Glucose,Urine (UA) Negative (Negative); Hyaline Casts,Urine 2 /lpf (0-2); Ketones,Urine Negative (Negative); Leukocyte Esterase,Urine Negative (Negative); Mucus,Urine Occasional /hpf; Nitrite,Urine Negative (Negative); PH, Urine 5.5 (5.0-8.0); Protein,Urine Trace (Negative); RBC,Urine 48 /hpf (0-5); Specific Gravity,Urine 1.028 (1.001-1.035); Uric Acid Crystals,Urine Moderate /hpf; Urobilinogen,Urine <2.0 mg/dL (<2.0); WBC,Urine 3 /hpf (0-5)
[2018-07-22 16:35] LABS: Iron Saturation 12.35 (15.00-50.00)
[2018-07-22] MEDS ORDERED: FERROUS SULFATE 325 MG TAB PO SCH (21:00)
== END 2018-07-22 14:56 | disposition home health service (06) ==
LOC: OR 10:42 → 4SSUR 13:54 → OR 07-22 14:56
PROVIDERS: ATTEND Orthopaedic Surgery
DX: M17.12 Unilateral primary osteoarthritis, left knee (principal); I10 Essential (primary) hypertension; E78.5 Hyperlipidemia, unspecified; N40.0 Benign prostatic hyperplasia without lower urinary tract symptoms; D64.9 Anemia, unspecified; D72.829 Elevated white blood cell count, unspecified; G43.909 Migraine, unspecified, not intractable, without status migrainosus; H91.91 Unspecified hearing loss, right ear; Z79.1 Long term (current) use of non-steroidal anti-inflammatories (NSAID); Z79.82 Long term (current) use of aspirin; Z79.899 Other long term (current) drug therapy
CPT/HCPCS: 27447; 97161; 80053; 82728; 83540; 83550; 85025; 81001; 88300; 73560; C1776; C1713; C1772; S0138; J2250; J0171; J1100; J0690 ×4; J2405; J3010; J1885; J1650; J2795; J2704; J0735; J1170 ×2

== ENCOUNTER 2018-08-25 13:43 | Emergency (ER) | payer BC ==
[2018-08-25] MEDS ORDERED: MORPHINE SULFATE 4 MG/ML SYRINGE IV STA (13:58)
[2018-08-25] MEDS ORDERED: SODIUM CHLORIDE 0.9% 1,000 ML IV STA (13:58)
--- NOTE | 2018-08-25 13:58 | ED ---
Abdominal Pain HPI - General Chief Complaint: Abdominal Pain Stated Complaint: Abd pain Time Seen by Provider: 08/25/18 13:58 Source: patient, RN notes reviewed, old records reviewed Mode of arrival: ambulatory Limitations: no limitations - History of Present Illness Initial Comments: This is a 58-year-old male to the ER for evaluation. Patient resents today for evaluation regarding abdominal pain left lower quadrant abdominal pain. I'll nausea no vomiting no blood in the stool no diarrhea. Patient states he occasionally does have blood in his stool. He has had a prior history of colonoscopy which she believes was normal. He admits to fevers last night. No modifying factors for symptoms. Patient is not taking any medications. No family members with similar complaint -: hour(s) Location: LLQ Radiation: LLQ Migration to: LLQ Severity: moderate Severity scale (1-10): 3 Quality: cramping, aching Consistency: constant Improves With: nothing Worsens With: nothing Context: other (fever) Associated Symptoms: nausea - Related Data Home Medications Medication Instructions Recorded Confirmed Finasteride [Proscar] 5 mg PO HS 07/10/17 08/25/18 Metoprolol Succinate (ER) [Toprol 100 mg PO HS 07/10/17 08/25/18 XL] Simvastatin [Zocor] 40 mg PO HS 07/10/17 08/25/18 SUMAtriptan SUCCINATE [Imitrex] 100 mg PO BID PRN 12/31/17 08/25/18 Ascorbic Acid [Vitamin C] 500 mg PO DAILY 08/25/18 08/25/18 Aspirin [Adult Low Dose Aspirin EC] 81 mg PO DAILY 08/25/18 08/25/18 Cholecalciferol [Vitamin D3] 1,000 unit PO DAILY 08/25/18 08/25/18 Diclofenac Sodium [Voltaren] 50 mg PO BID 08/25/18 08/25/18 Multivitamins, Thera [Multivitamin 1 tab PO DAILY 08/25/18 08/25/18 (formulary)] [place]-3 Fatty Acids/Fish Oil [Fish 1 cap PO DAILY 08/25/18 08/25/18 Oil 1,000 mg Softgel] Previous Rx's Medication Instructions Recorded HYDROcodone/APAP 7.5-325MG [[place] 1 - 2 each PO Q6HR PRN #56 tab 07/22/18 7.5] Ciprofloxacin HCl [Cipro] 500 mg PO Q12HR #20 tablet 08/25/18 Naproxen [Naprosyn] 500 mg PO Q12HR PRN #30 tab 08/25/18 Ondansetron Odt [Zofran ODT] 4 mg PO Q8HR PRN #30 tab 08/25/18 metroNIDAZOLE [Flagyl] 500 mg PO TID #30 tab 08/25/18 Allergies Allergy/AdvReac Type Severity Reaction Status Date / Time No Known Allergies Allergy Verified 08/25/18 14:29 Review of Systems ROS Statement: Those systems with pertinent positive or pertinent negative responses have been documented in the HPI. ROS Other: All systems not noted in ROS Statement are negative. Past Medical History Past Medical History: Hyperlipidemia, Hypertension, Osteoarthritis (OA) Additional Past Medical History / Comment(s): migraines History of Any Multi-Drug Resistant Organisms: None Reported Past Surgical History: Appendectomy, Hernia Repair, Orthopedic Surgery Additional Past Surgical History / Comment(s): arthroscopy knee Past Anesthesia/Blood Transfusion Reactions: No Reported Reaction Additional Past Anesthesia/Blood Transfusion Reaction / Comment(s): motion sickness when younger Past Psychological History: Anxiety Smoking Status: Never smoker Past Alcohol Use History: None Reported Past Drug Use History: None Reported - Past Family History Father Family Medical History: Cancer General Exam Limitations: no limitations General appearance: alert, in no apparent distress Head exam: Present: atraumatic, normocephalic, normal inspection Eye exam: Present: normal appearance, PERRL, EOMI. Absent: scleral icterus, conjunctival injection, periorbital swelling ENT exam: Present: normal exam, mucous membranes moist Neck exam: Present: normal inspection. Absent: tenderness, meningismus, lymphadenopathy Respiratory exam: Present: normal lung sounds bilaterally. Absent: respiratory distress, wheezes, rales, rhonchi, stridor Cardiovascular Exam: Present: regular rate, normal rhythm, normal heart sounds. Absent: systolic murmur, diastolic murmur, rubs, gallop, clicks GI/Abdominal exam: Present: soft, distended, tenderness (Left lower quadrant), normal bowel sounds. Absent: guarding, rebound, rigid Extremities exam: Present: normal inspection, full ROM, normal capillary refill. Absent: tenderness, pedal edema, joint swelling, calf tenderness Back exam: Present: normal inspection Neurological exam: Present: alert, oriented X3, CN II-XII intact Psychiatric exam: Present: normal affect, normal mood Skin exam: Present: warm, dry, intact, normal color. Absent: rash Course Vital Signs 08/25/18 13:51 Temperature 98.3 F Pulse Rate 104 H Respiratory 18 Rate Blood Pressure 140/83 O2 Sat by Pulse 97 Oximetry - Reevaluation(s) Reevaluation #1: 08/25/18 16:35 Medical record is reviewed Reevaluation #2: 08/25/18 16:35 Patient remains in no distress no pain Reevaluation #3: 08/25/18 16:35 Spoke with patient at length regarding symptoms Medical Decision Making - Medical Decision Making 58 male the ER for evaluation with positive abdominal pain. CT positive for diverticulitis mild. Patient will be discharged home as he feels no specific painless he touches the area. Given dietary instructions. And antibiotics - Lab Data Result diagrams: 08/25/18 14:30 08/25/18 14:30 Lab Results 08/25/18 08/25/18 08/25/18 Range/Units 14:30 14:30 14:30 WBC 16.4 H (3.8-10.6) k/uL RBC 4.47 (4.30-5.90) m/uL Hgb 12.2 L (13.0-17.5) gm/dL Hct 37.2 L (39.0-53.0) % MCV 83.2 (80.0-100.0) fL MCH 27.3 (25.0-35.0) pg MCHC 32.7 (31.0-37.0) g/dL RDW 15.2 (11.5-15.5) % Plt Count 282 (150-450) k/uL Neutrophils % 84 % Lymphocytes % 8 % Monocytes % 6 % Eosinophils % 1 % Basophils % 0 % Neutrophils # 13.7 H (1.3-7.7) k/uL Lymphocytes # 1.3 (1.0-4.8) k/uL Monocytes # 1.0 (0-1.0) k/uL Eosinophils # 0.2 (0-0.7) k/uL Basophils # 0.0 (0-0.2) k/uL Sodium 140 (137-145) mmol/L Potassium 5.3 H (3.5-5.1) mmol/L Chloride 107 (98-107) mmol/L Carbon Dioxide 24 (22-30) mmol/L Anion Gap 9 mmol/L BUN 23 H (9-20) mg/dL Creatinine 0.96 (0.66-1.25) mg/dL Est GFR (CKD-EPI)AfAm >90 (>60 ml/min/1.73 sqM) Est GFR (CKD-EPI)NonAf 88 (>60 ml/min/1.73 sqM) Glucose 108 H (74-99) mg/dL Plasma Lactic Acid Magdiel 1.6 (0.7-2.0) mmol/L Calcium 9.6 (8.4-10.2) mg/dL Total Bilirubin 1.1 (0.2-1.3) mg/dL AST 38 (17-59) U/L ALT 20 L (21-72) U/L Alkaline Phosphatase 58 (38-126) U/L Total Protein 7.8 (6.3-8.2) g/dL Albumin 4.2 (3.5-5.0) g/dL Amylase 44 (30-110) U/L Lipase 71 (23-300) U/L - Radiology Data Radiology results: report reviewed (CT head and pelvis positive for diverticulitis), image reviewed Disposition Clinical Impression: Diverticulitis, Abdominal pain Disposition: HOME SELF-CARE Condition: Good Instructions (If sedation given, give patient instructions): Diverticulitis (ED ), Diverticulitis Diet (ED) Prescriptions: Ciprofloxacin HCl [Cipro] 500 mg PO Q12HR #20 tablet metroNIDAZOLE [Flagyl] 500 mg PO TID #30 tab Naproxen [Naprosyn] 500 mg PO Q12HR PRN #30 tab PRN Reason: Pain Ondansetron Odt [Zofran ODT] 4 mg PO Q8HR PRN #30 tab PRN Reason: nausea/vomiting Is patient prescribed a controlled substance at d/c from ED?: No Referrals: Pravin Moreau MD [Primary Care Provider] - 1-2 days
[2018-08-25 14:55] LABS: Basophils % (A) 0 %; Eosinophils # (A) 0.2 k/uL (0-0.7); Eosinophils % (A) 1 %; HCT 37.2 % (39.0-53.0); HGB 12.2 gm/dL (13.0-17.5); Lymphocytes # (A) 1.3 k/uL (1.0-4.8); Lymphocytes % (A) 8 %; MCH 27.3 pg (25.0-35.0); MCHC 32.7 g/dL (31.0-37.0); MCV 83.2 fL (80.0-100.0); Mean Platelet Volume 7.1; Monocytes % (A) 6 %; Neutrophils # (A) 13.7 k/uL (1.3-7.7); Neutrophils % (A) 84 %; Platelet Count 282 k/uL (150-450); RBC 4.47 m/uL (4.30-5.90); RDW 15.2 % (11.5-15.5); WBC 16.4 k/uL (3.8-10.6)
[2018-08-25 15:04] LABS: ALT 20 U/L (21-72); AST 38 U/L (17-59); Albumin 4.2 g/dL (3.5-5.0); Alkaline Phosphatase 58 U/L (38-126); Amylase 44 U/L (30-110); Anion Gap 9 mmol/L; Blood Urea Nitrogen 23 mg/dL (9-20); Calcium 9.6 mg/dL (8.4-10.2); Carbon Dioxide 24 mmol/L (22-30); Chloride 107 mmol/L (98-107); Glucose 108 mg/dL (74-99); Lipase 71 U/L (23-300); Sodium 140 mmol/L (137-145); Total Bilirubin 1.1 mg/dL (0.2-1.3); Total Protein 7.8 g/dL (6.3-8.2)
[2018-08-25 15:05] LABS: Potassium 5.3 mmol/L (3.5-5.1)
--- NOTE | 2018-08-25 15:38 | CT ---
EXAMINATION TYPE: CT abdomen pelvis w con DATE OF EXAM: 08/25/2018 COMPARISON: 08/24/2009 HISTORY: Left sided abdominal pain with fever. CT DLP: 1321.8 mGycm Automated exposure control for dose reduction was used. CONTRAST: CT scan of the abdomen pelvis is performed with IV Contrast, patient injected with 100 mL of Isovue 3 00. FINDINGS- LUNG BASES- No significant abnormality is appreciated. LIVER/GB- No gross abnormality is appreciated. PANCREAS- No gross abnormality is seen. SPLEEN- No gross abnormality is seen. ADRENALS- No gross abnormality is seen. KIDNEYS/BLADDER- no hydronephrosis or nephrolithiasis. There is a 1 cm hypodense lesion off the lower pole left kidney not clearly seen on the previous exam. Measures 20 Hounsfield units and is indeterm inate. BOWEL-previous surgery suggestive of appendectomy noted. There are numerous diverticula seen througho ut the colon. There is pericolonic inflammatory change along the left colon compatible with acute div erticulitis. Colitis not excluded. Incomplete distention limits the assessment for colonic mass. Foll ow to resolution recommended.. LYMPH NODES- No greater than 1cm abdominal or pelvic lymph nodes areappreciated. OSSEOUS STRUCTURES-up atrophic and degenerative changes of the spine with a vacuum disc at L5-S1 comp atible severe degenerative disc disease. Arthropathy of the hips. OTHER- no free fluid. No free air. Aorta of normal caliber. IMPRESSION- 1. Findings are most suggestive of acute left colonic diverticulitis. No free air or abscess. 2. Indeterminate lower pole left renal lesion does not meet the criteria of a simple cyst. Recommend follow-up ultrasound.
[2018-08-25] MEDS ORDERED: metroNIDAZOLE 500 MG TAB PO STA (16:33)
[2018-08-25] MEDS ORDERED: CIPROFLOXACIN HCL 500 MG TAB PO STA (16:33)
[2018-08-25 17:09] VITALS: BP 114/76; PULSE 72; RESP 16; TEMP 98.2
== END 2018-08-25 17:00 | disposition home or self-care (01) ==
LOC: EC 13:43
DX: K57.32 Diverticulitis of large intestine without perforation or abscess without bleeding (principal); E78.5 Hyperlipidemia, unspecified; I10 Essential (primary) hypertension; Z79.82 Long term (current) use of aspirin; Z79.899 Other long term (current) drug therapy
CPT/HCPCS: 36415; 80053; 82150; 83605; 83690; 85025; 74177; 99284; 96360; Q9967